=== PATIENT | male | born 1970 | race Caucasian/White ===

== ENCOUNTER 2019-10-12 22:08 | Emergency (ER) | payer OTHER ==
[~2019-10-12] VITALS: Ht 175.3 cm; Wt 74.8 kg
--- NOTE | 2019-10-12 22:08 | NUR ---
49 YO M TRANSIENT BIBA FOR C/C OF 08/08 RLQ ABD PAIN X 7 HOURS. PT STATES THE PAIN IS AND ACHING SQUEEZING PAIN THAT COMES AND GOES. PT STATES HE IS EXPERIENCING NAUSEA WITH NO VOMITING. LBM WAS X2 DAYS AGO, HARD FORMATION. BOWEL SOUNDS NORMOACTIVE THROUGHOUT. PT STATES HE DRANK 1 BEER TODAY AND SMOKED MARIJUANA. DENIES N/V/D, FEVER, COUGH, SOB. 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 BED LOCKED AND IN LOWEST POSITION. NKA NO MED HX NO RX
--- NOTE | 2019-10-12 22:08 | NUR ---
PT MARCI RUSH. TAKEN TO BED 12
[2019-10-12 22:10] VITALS: BP 140/109
--- NOTE | 2019-10-12 22:20 | NUR ---
Dr. Wagoner examining patient.
[2019-10-12] MEDS ORDERED: NACL 0.9% 1,000 ML IV SCH (22:23)
[2019-10-12] MEDS ORDERED: KETOROLAC 30 MG/ML VIAL IVP ONE (22:25)
[2019-10-12 22:39] LABS: APPEARANCE,URINE SL CLOUDY (CLEAR); BLOOD, URINE NEGATIVE (NEGATIVE); COLOR,URINE DARK YELLOW (YELLOW); LEUKOCYTE ESTERASE ,URINE NEGATIVE (NEGATIVE); NITRITE, URINE NEGATIVE (NEGATIVE); PH,URINE 5.5 (5.0-9.0); UGLUCOSE NEGATIVE (NEGATIVE)
[2019-10-12 22:41] LABS: BASOPHILS % (AUTO) 0.7 % (0.0-2.0); EOSINOPHILS # (AUTO) 0.2 K/uL (0-0.4); EOSINOPHILS % (AUTO) 3.3 % (0.0-4.0); HEMATOCRIT 46.2 % (36-52); HEMOGLOBIN 15.6 g/dL (12.0-18.0); LYMPHOCYTES # (AUTO) 1.3 K/uL (2.0-11.5); LYMPHOCYTES % (AUTO) 18.1 % (20.5-51.1); MEAN CORPUSCULAR HEMOGLOBIN 31 pg (27-31); MEAN CORPUSCULAR HGB CONC 34 g/dL (33-37); MEAN CORPUSCULAR VOLUME 92.9 fL (80-94); MONOCYTES # (AUTO) 0.8 K/uL (0.8-1.0); MONOCYTES % (AUTO) 11.8 % (1.7-9.3); NEUTROPHILS # (AUTO) 4.6 K/uL (1.8-7.7); NEUTROPHILS % (AUTO) 66.1 % (42.2-75.2); PLATELET COUNT (AUTO) 199 K/uL (140-450); RED BLOOD CELL COUNT(AUTO) 4.98 MIL/uL (4.20-6.10); RED CELL DISTRIBUTION WIDTH 14.8 % (11.6-13.7)
--- NOTE | 2019-10-12 22:51 | NUR ---
PT TAKEN TO CT
[2019-10-12 22:58] LABS: ALBUMIN 4.1 g/dL (3.4-5.0); ANION GAP 13.2 (8-16); CARBON DIOXIDE 27.4 mmol/L (21-32); CREATININE 1.1 mg/dL (0.6-1.3); POTASSIUM 3.6 mmol/L (3.5-5.1); TOTAL BILIRUBIN 1.3 mg/dL (0.0-1.0)
[2019-10-12 23:00] LABS: BILIRUBIN,URINE NEGATIVE (NEGATIVE)
--- NOTE | 2019-10-12 23:04 | NUR ---
PT RETURN FROM CT
--- NOTE | 2019-10-13 00:05 | NUR ---
PT PROVIDED WITH HOMELESS RESOURCE PACKET, AND MEAL/BEVERAGE.
[2019-10-13 00:10] VITALS: BP 142/94
--- NOTE | 2019-10-13 00:10 | NUR ---
Patient discharged with v/s stable. Written and verbal after care instructions given and explained. Patient alert, oriented and verbalized understanding of instructions. Ambulatory with steady gait. All questions addressed prior to discharge. ID band removed. Patient advised to follow up with PMD. Rx of ZOFRAN, MOTRIN given. Patient educated on indication of medication including possible reaction and side effects. Opportunity to ask questions provided and answered.
== END 2019-10-13 00:10 | disposition home or self-care (01) ==
LOC: MED 22:08
DX: R10.31 Right lower quadrant pain (principal); F17.210 Nicotine dependence, cigarettes, uncomplicated; F12.10 Cannabis abuse, uncomplicated
CPT/HCPCS: 36415; 74176; 80053; 81003; 82550; 83690; 85025; 96361; 96374; 99284; J1885; J7030